=== PATIENT | male | born 1955 | race African-American/Black ===

== ENCOUNTER 2024-12-23 11:11 | Emergency (ER) | payer MEDICARE ==
[~2024-12-23] VITALS: Ht 182.9 cm; Wt 79.4 kg
[2024-12-23 11:22] VITALS: BP 182/78; PULSE 82; RESP 22; TEMP 37.1; O2SAT 100; O2SAT 99
[2024-12-23 13:21] LABS: CARBON DIOXIDE 23 mEq/L (21-32); CHLORIDE 108 mEq/L (98-107); SODIUM 138 mEq/L (136-145)
[2024-12-23 13:22] LABS: CALCIUM 10.6 mg/dL (8.7-10.4)
[2024-12-23 13:27] LABS: CREATININE 1.3 mg/dL (0.6-1.3); GLUCOSE 184 mg/dL (70-105); UREA NITROGEN BLOOD 27 mg/dL (9-23)
[2024-12-23] MEDS ORDERED: CETI10TA11 MT (13:57)
== END 2024-12-23 14:04 | disposition home or self-care (01) ==
LOC: ER 11:11
DX: L29.9 Pruritus, unspecified (principal); I10 Essential (primary) hypertension; E11.9 Type 2 diabetes mellitus without complications
CPT/HCPCS: 36415; 80048; 99283

== ENCOUNTER 2025-01-29 12:25 | Emergency (ER) | payer MEDICARE ==
[~2025-01-29] VITALS: Ht 182.9 cm; Wt 79.3 kg
[~2025-01-29 12:25] MED LIST: CETI10TA11 MT
[2025-01-29 12:29] VITALS: O2SAT 98
[2025-01-29 15:07] VITALS: BP 167/70; PULSE 83; RESP 21; TEMP 36.7; O2SAT 98
== END 2025-01-29 15:08 | disposition home or self-care (01) ==
LOC: ER 12:25
DX: S90.31XA Contusion of right foot, initial encounter (principal); M20.22 Hallux rigidus, left foot; I10 Essential (primary) hypertension; E11.9 Type 2 diabetes mellitus without complications; Z79.899 Other long term (current) drug therapy; X58.XXXA Exposure to other specified factors, initial encounter; Y93.89 Activity, other specified; Y92.89 Other specified places as the place of occurrence of the external cause; Y99.8 Other external cause status
CPT/HCPCS: 73630; 99283

== ENCOUNTER 2025-06-27 02:14 | Emergency (ER) | payer MEDICARE ==
[~2025-06-27] VITALS: Ht 182.9 cm; Wt 80.0 kg
[2025-06-27] MEDS ORDERED: GLIP10TA17 MT (02:21)
[2025-06-27] MEDS ORDERED: OXYB-52 MT (02:22)
[2025-06-27 02:28] VITALS: O2SAT 98
[2025-06-27] MEDS: HYDRALAZINE 20MG/ML VIAL IV ONE (03:53)
[2025-06-27 04:05] LABS: BASOPHILS % 0.4 % (0.0-2.0); EOSINOPHILS % 1.3 % (0.0-5.0); HEMATOCRIT. 38.0 % (42.0-52.0); HEMOGLOBIN. 13.1 g/dL (14.0-18.0); LYMPHOCYTES % 23.8 % (20.0-50.0); MEAN PLATELET VOLUME 7.0 fl (7.4-10.4); MONOCYTES % 6.7 % (2.0-8.0); NEUTROPHILS % 67.8 % (40.0-76.0); PLATELET 291 x1000/uL (130-400); RED BLOOD CELL COUNT 4.34 mill/uL (4.7-6.1); RED CELL DISTRIBUTION WIDTH 13.7 % (11.6-14.6)
[2025-06-27 04:23] LABS: CREATININE 1.5 mg/dL (0.6-1.3); UREA NITROGEN BLOOD 17.0 mg/dL (9-23)
[2025-06-27 04:25] LABS: TROPONIN I HIGH SENSITIVITY 4 ng/L (3.0-53)
[2025-06-27 05:18] VITALS: BP 178/81; PULSE 74; RESP 25; TEMP 36.6; O2SAT 98
[2025-06-27 06:00] LABS: TROPONIN I HIGH SENSITIVITY 4 ng/L (3.0-53)
== END 2025-06-27 05:35 | disposition home or self-care (01) ==
LOC: ER 02:14
DX: R00.2 Palpitations (principal); I10 Essential (primary) hypertension; E11.9 Type 2 diabetes mellitus without complications; E78.00 Pure hypercholesterolemia, unspecified
CPT/HCPCS: 99285; 96374; 80048; 82962; 85025; 84484; 36415; 93005; J0360